=== PATIENT | female | born 2000 | race Caucasian/White ===

== ENCOUNTER 2024-02-23 23:09 | Emergency (ER) | payer SELFPAY ==
[2024-02-23 23:11] VITALS: BP 120/74
[2024-02-24 00:19] LABS: Urine Albumin Negative (Neg - Trace); Urine Bilirubin Negative (Negative); Urine Character Clear (Clear); Urine Color Yellow; Urine Glucose Negative (Negative); Urine Ketone Negative (Negative); Urine Leukocyte Negative (Negative); Urine Nitrite Negative (Negative); Urine Occult Blood Negative (Negative); Urine Urobilinogen Negative (Neg - 1+)
[2024-02-24 00:35] LABS: % Basophils 0.7 % (0-2); % Eosinophils 1.2 % (0-6); % Immature Granulocytes 0.3 % (0-0.5); % Lymphocytes 47.8 % (20.5-51.1); % Monocytes 8.9 % (1.7-9.3); % Neutrophils 41.1 % (42.2-75.2); Absolute Eosinophils 0.1 10^3/uL (0-0.7); Absolute Lymphocytes 2.9 10^3/uL (1.2-3.4); Absolute Monocytes 0.5 10^3/uL (0.1-0.6); Absolute Neutrophils 2.5 10^3/uL (1.4-6.5); Hematocrit 40.3 % (37.0-47.0); Hemoglobin 13.7 g/dL (12.0-16.0); Mean Corpuscular Hgb 29.2 pg (27.0-31.0); Mean Corpuscular Volume 85.9 fL (81.0-99.0); Mean Platelet Volume 11.7 fL (7.4-10.4); Nucleated Red Blood Cells % 0 %; Platelet Count 314 10^3/uL (130-400); Red Blood Cell Count 4.69 10^6/uL (4.20-5.40); Red Cell Dist. Width 13.4 % (11.5-14.5)
[2024-02-24 00:38] LABS: ALT (SGPT) < 10 U/L (0-35); AST (SGOT) 21 U/L (14-36); Albumin 4.8 g/dl (3.5-5.0); Alkaline Phosphatase 86 U/L (38-126); Blood Urea Nitrogen 6 mg/dl (7-17); Calcium 9.8 mg/dl (8.4-10.2); Carbon Dioxide 24 mmol/L (22-30); Chloride 105 mmol/L (98-107); Glucose 99 mg/dl (70-99); Potassium 4.1 mmol/L (3.5-5.1); Sodium 139 mmol/L (135-145); Total Bilirubin 0.4 mg/dl (0.2-1.3); Total Protein 7.6 g/dl (6.3-8.2); eGFR > 60.00
[2024-02-24 00:45] LABS: HCG, Serum Qualitative Screen Negative
--- NOTE | 2024-02-24 01:03 | ED.GENMED ---
History of Present Illness
General
Chief Complaint: Weight Changes
Source: patient and significant other
Exam Limitations: none
Time Seen by Provider: 02/24/24 00:19
Nursing documentation reviewed up to this point in time: agreed with
History of Present Illness
History of Present Illness:
23-year-old female with past medical history of polycystic ovarian syndrome who presents to the emergency department for evaluation of dizziness and shortness of breath, anxiety in the setting of recent weight loss and disordered eating habits.
Patient offers as background that she has struggled with body image difficulties since she was a kid. She says that she has significant anxiety related to food and has noticed that in the past 3 to 4 months this has increased and has led to her
skipping meals often going full days without eating. She says she has engaged in self-induced vomiting on past but this is not a consistent habit. She says that her anxiety around food has gotten so severe that she has lost about 40 pounds in the
last 3 months. She says that over the past 1+ months she has noticed that she has been getting lightheaded particular with positional changes. She says that she has had nausea and vacillating between constipation and diarrhea. She says that she
has had generalized brain fog and fatigue, generalized weakness. She says that she will sometimes get short of breath. She says she has been very anxious. She says that tonight she had trouble sleeping think about all these things and was having
physical symptoms as described above decided she should come in to be evaluated�she is here with her friend/significant other for support.
Review of Systems
Review of Systems
All Other Systems: ROS reviewed and negative except as documented in HPI and ROS
Constitutional: Reports fatigue; Denies fever or chills
Respiratory: Reports trouble breathing; Denies cough
Cardiac: Denies chest pain or palpitations
ABD/GI: Reports nausea, diarrhea and constipated; Denies abdominal pain or vomiting
: Denies flank pain
Musculoskeletal: Denies neck pain or back pain
Neurological: Reports dizzy and weakness (Generalized); Denies headache
Phy Exam
Physical Exam
Physical Exam:
General: Awake, alert, oriented x3; anxious but nontoxic
Head: Normocephalic, atraumatic
Eyes: Conjunctiva normal, pupils equal round and reactive to light bilaterally
Throat: Airway intact, handling secretions, good dentition, midline uvula, no oropharyngeal erythema
Neck: Trachea midline, supple without meningismus
Lungs: Clear to auscultation bilaterally, no wheezing, rales, rhonchi
Heart: Regular rate and rhythm, no murmurs, gallops, or rubs
Abd: Soft, non distended, nontender
Neuro: No gross deficits
Skin: no rash, no calluses on the hands
Extremities: No edema in extremities, equal pulses in all extremities
Scores
Heart Failure Risk
Heart Failure Risk Score: Not Applicable
Heart Score for Chest Pain Patients
STEMI patient?: Not applicable
Withdrawal Assessment of Alcohol
Withdrawal Assessment Completed?: Not applicable
Course
Orders/Labs/Results
Orders:
Orders
02/23/24 23:58
Complete Blood Count/With Diff Urgent
Comprehensive Metabolic Panel Urgent
02/24/24 00:05
HCG, Serum Qualitative Screen Urgent
TSH Reflex To Free T4 Urgent
Comment: ADD ON
02/24/24 00:09
Urinalysis Reflex To Culture Urgent
Date Specimen was Collected: 02/24/24
Time Specimen was Collected: 00:07
02/24/24 00:14
Add On- LAB Urgent
Tests Added?: hcg qualitative
02/24/24 00:17
Add On- LAB Urgent
Tests Added?: tsh reflex to t4
02/24/24 00:50
Electrocardiogram (*1) Urgent
Reason for Study: QTc Monitoring
EKG- Treatment ONCE
02/24/24 01:01
Crisis Consult Routine
Reason for Consult: anorexia
CR Chest - 2 Views Urgent
Comment:
Reason For Exam: sob
02/24/24 02:40
Amoxicillin 875 mg/Clav 125 mg [Augmentin 875 mg/125 mg] 1 tablet PO NOW STA
Abnormal Lab Results
02/24/24
00:05
MPV 11.7 H fL
(7.4-10.4)
Neutrophils % 41.1 L %
(42.2-75.2)
BUN 6 L mg/dl
(7-17)
Creatinine 0.5 L mg/dL
(0.6-1.0)
02/24/24 00:05
02/24/24 00:05
Vital Signs
Initial and Last Documented VS:
Initial Vital Signs
Temp Pulse Resp BP Pulse Ox
36.9 C 88 20 120/74 96
02/23/24 23:11 02/23/24 23:11 02/23/24 23:11 02/23/24 23:11 02/23/24 23:11
Last Documented Vital Signs
Temp Pulse Resp BP Pulse Ox
36.9 C 88 20 120/74 96
02/23/24 23:11 02/23/24 23:11 02/23/24 23:11 02/23/24 23:11 02/23/24 23:11
MDM/Problems Addressed
Differential Diagnosis Includes:
Anorexia and complications thereof including electrolyte derangements, dehydration, anemia
MDM/Problems Addressed:
23-year-old female presents for evaluation of disordered eating habits, significant weight loss and body image issues have been progressing over the past few months. She has been having physical symptoms including paresthesias, anxiety, shortness
of breath, lightheadedness, nausea, brain fog. Came to the emergency room for evaluation and seeking assistance. Vital signs are normal. Weight 67.8 kg today. Plan to check an EKG. Will place an IV send labs including a CBC and a CMP, hCG,
thyroid studies. Check urinalysis. She did mention that she has been having some shortness of breath we will check a chest x-ray although suspect that this may be anxiety related. Will discuss with crisis team for assessment.
Labs reviewed: CBC unremarkable, CMP no clinically significant abnormalities�notably normal potassium, normal albumin. EKG shows sinus rhythm incomplete right bundle branch block. No QT prolongation. Chest x-ray reviewed she does appear to have
right lower lung faint opacity�she has admitted to occasional vomiting certainly aspiration a consideration. She does admit that she has been coughing recently. Will plan to cover with antibiotics but she is afebrile, normal respiratory rate, no
pulse ox�no indication for inpatient treatment even with mild pneumonia. I spoke to our crisis team and they performed an assessment. They spoke to the patient and provided resources both to arrange outpatient and inpatient treatment for eating
disorders. I had a long discussion with the patient she feels comfortable with resources as provided and with going home to follow-up and initiate care on an outpatient basis. I spoke to her about follow-up plan and return precautions and all
questions were answered.
*Radiology
Radiology exam reviewed: preliminary read by ED provider
*Pulse Oximetry
Patient hypoxic: no
*EKG
Interpreted by ED Provider?: Yes
Heart Rate: 80
Rate: normal
Rhythm: sinus
Hood: normal axis
Interval: normal interval
QRS Pattern: right bundle branch block (Incomplete)
Ischemia: T-wave inversion (Nonspecific T wave abnormalities)
*Critical Care Note
Total Time (30-74mins, 75-104mins- exclusive of procedures): Not Applicable
Data Reviewed
Source: patient and significant other
Patient Management
Discussion with other providers: Other (Discussed with crisis team)
ED Attending Note
-
Portions of this chart may have been created with voice recognition software.� Occasional wrong word or��sound alike� substitutions may have occurred due to the inherent limitations of voice recognition software.
Discharge Plan
Departure
Patient Disposition: Home (Routine Discharge)
Date of Disposition: 02/24/24
Time of Disposition: 02:44
Patient with high blood pressure during this ER visit?: No
Discharge Problem:
Weight loss, Pneumonia, Anorexia nervosa
Instructions: Pneumonia in adults, Eating Disorder
Prescriptions:
New
amoxicillin-pot clavulanate 875-125 mg tablet
1 tab PO BID 7 Days Qty: 14 0RF
Referrals:
NONE,* [Family Provider] -
Activity Restrictions/Additional Instructions:
Thank you for visiting the Emergency Department at [facility].
1. Please schedule a follow up appointment as directed. Call first thing tomorrow morning to make an appointment.
2. If indicated, please take your medications as instructed and indicated on discharge paperwork.
3. If any of your symptoms do not improve, or persist, or become more severe within 6-12 hours, please return to the emergency department for further care.
4. Please return to the emergency department if you develop a headache, neck pain/stiffness, fever greater than 100.4F, chest pain, shortness of breath, persistent nausea, vomiting, slurred speech, difficulty walking, numbness/tingling, weakness,
signs of infection or any other symptoms that are worrisome to you.
Please call [phone] if you have any questions.
Interventions
Interventions:
*Risk Screen - Suicide Last Done: 02/23/24 23:11
*General Assessment Last Done: 02/24/24 00:07
*Neglect/Abuse Screening Last Done: 02/23/24 23:11
ED- Fall Risk Assessment Last Done: 02/24/24 00:08
*ED COVID-19 Vaccine History Last Done: 02/24/24 00:08
Discharge Date and Time
Print Language: WELSH
[2024-02-24 01:26] LABS: TSH Reflex To Free T4 4.23 uIU/ml (0.47-4.68)
[2024-02-24 02:43] VITALS: BP 95/56
[2024-02-24] MEDS: AUGMENTIN 875 MG/125 MG 1 TABLET PO (02:44)
== END 2024-02-24 02:48 | disposition home or self-care (01) ==
LOC: EMR 23:09
PROVIDERS: Emergency Medicine; EMERGENCY PHYSICIAN Emergency Medicine
DX: J18.9 Pneumonia, unspecified organism (principal); F50.00 Anorexia nervosa, unspecified; R11.2 Nausea with vomiting, unspecified; R63.4 Abnormal weight loss; R42 Dizziness and giddiness; R53.83 Other fatigue; R19.4 Change in bowel habit; R53.1 Weakness; I45.10 Unspecified right bundle-branch block; F41.9 Anxiety disorder, unspecified; E28.2 Polycystic ovarian syndrome
CPT/HCPCS: 99283; 71046; 80053; 81003; 84443; 84703; 85025; 93005

== ENCOUNTER 2024-08-24 16:50 | Emergency (ER) | payer SELFPAY ==
[2024-08-24 17:08] VITALS: BP 117/71
--- NOTE | 2024-08-24 17:50 | ED.GENMED ---
History of Present Illness
General
Chief Complaint: Crisis Evaluation
Source: patient
Exam Limitations: none
Time Seen by Provider: 08/24/24 17:32
Nursing documentation reviewed up to this point in time: agreed with
History of Present Illness
History of Present Illness:
23-year-old female referred by mobile crisis for evaluation she has had thoughts of harming herself for a month she lives by herself, does not drink or smoke has a history of mental illness she is a college student she is unsure if she hears voices,
she is cooperative here denies any drug ingestion
Past History
Past History
ED Past Medical History: Psychiatric
Social History
Tobacco: Non-smoker
Alcohol: None
Drug: None
Personal: Single
Living: alone
Employment: Student
Review of Systems
Review of Systems
All Other Systems: Not applicable
Constitutional: Denies fever or fatigue
Respiratory: Reports no symptoms
Cardiac: Reports no symptoms
Skin: Reports no symptoms
Psychiatric: Reports depression, anxiety and suicidal; Denies hallucinations
Phy Exam
Physical Exam
Physical Exam:
Physical Exam
General: no apparent distress, not acutely ill
Neck: supple. no meningeal signs. normal psoterior pharynx
Heart: s1/s2 regular rate and rhythm, no murmur. equal radial pulses.
Lungs: no acute respiratory distress. clear bilaterally
Abdomen: normal bowel sounds. not tender. no CVAT
Neuro: alert and oriented. no focal neurological deficits
Skin: no rash
Psychiatric: well kept. interactive and cooperative
Extremities: no edema. no calf tenderness. negative homans. good distal pulses
Course
Orders/Labs/Results
Orders:
Orders
08/24/24 16:52
1:1 Observation - Suicide/ Violent Behavior As Directed
Crisis Consult Urgent
Reason for Consult: suicidal ideation
Vital Signs
Initial and Last Documented VS:
Initial Vital Signs
Temp Pulse Resp BP Pulse Ox
97.5 F 84 18 117/71 100
08/24/24 17:08 08/24/24 17:08 08/24/24 17:08 08/24/24 17:08 08/24/24 17:08
Last Documented Vital Signs
Temp Pulse Resp BP Pulse Ox
97.5 F 97 18 121/79 97
08/24/24 17:08 08/24/24 22:54 08/24/24 17:08 08/24/24 22:54 08/24/24 22:54
*Critical Care Note
Total Time (30-74mins, 75-104mins- exclusive of procedures): Not Applicable
Update Note
Update Note:
Update reviewed with crisis, they would like to have telepsych see the patient to help with the disposition inpatient versus outpatient I think that is a good plan
ED Attending Note
-
Portions of this chart may have been created with voice recognition software.� Occasional wrong word or��sound alike� substitutions may have occurred due to the inherent limitations of voice recognition software.
Discharge Plan
Departure
Patient Disposition: Home (Routine Discharge)
Date of Disposition: 08/24/24
Time of Disposition: 20:21
Patient with high blood pressure during this ER visit?: No
Condition: Good
Discharge Problem:
Depression
Instructions: Depression, Adult (DC)
Prescriptions:
No Action
amoxicillin-pot clavulanate 875-125 mg tablet
1 tab PO BID 7 Days Qty: 14 0RF
Referrals:
UNKNOWN - PT DOES,NOT KNOW [Family Provider] -
Interventions
Interventions:
*Risk Screen - Suicide Last Done: 08/24/24 16:51
*General Assessment Last Done: 08/24/24 22:54
*Neglect/Abuse Screening Last Done: 08/24/24 17:08
ED- Fall Risk Assessment Last Done: 08/24/24 22:54
*ED COVID-19 Vaccine History Last Done: 08/24/24 17:08
*Nursing Disposition Last Done: 08/24/24 22:54
ED-Psychological Assessment Last Done: 08/24/24 19:57
Discharge Date and Time
Discharge Date/Time: 08/24/24 22:55
Print Language: MALDIVIAN
[2024-08-24 22:54] VITALS: BP 121/79
== END 2024-08-24 22:55 | disposition home or self-care (01) ==
LOC: EMR 16:50
PROVIDERS: EMERGENCY PHYSICIAN Emergency Medicine
DX: F32.A Depression, unspecified (principal); Z79.899 Other long term (current) drug therapy; Z81.8 Family history of other mental and behavioral disorders; Z91.52 Personal history of nonsuicidal self-harm
CPT/HCPCS: 99283